=== PATIENT | female | born 1950 | race Caucasian/White ===

== ENCOUNTER 2021-06-28 12:36 | Outpatient (CLI) | payer OTHER | END 2021-06-28 12:37 | disposition home or self-care (01) | LOC: LABBT 12:36 | PROVIDERS: ATTEND Orthopaedic Surgery | DX: Z01.818 Encounter for other preprocedural examination (principal); M17.0 Bilateral primary osteoarthritis of knee | CPT/HCPCS: 71046; 80048; 81003; 85025; 85610; 86850; 86900; 86901; 87081; 93005; 93010; U0003; U0005 ==

== ENCOUNTER 2021-07-03 06:21 | Inpatient (IN) | payer MEDICARE, OTHER ==
[2021-06-28 13:46] LABS: #Basophils 0.1 10x3/uL (0.0-0.2); #Eosinphils 0.1 10x3/uL (0.0-0.5); #Monocytes 0.6 10x3/uL (0.0-1.1); %Basophils 0.8 % (0.0-2.0); %Eosinophils 1.2 % (0.0-6.0); %Lymphocytes 31.6 % (18.0-47.0); %Monocytes 7.4 % (0.0-10.0); %Neutrophils 58.5 % (40.0-75.0); Hemoglobin 13.8 g/dL (12.0-15.5); Mean Corpuscular HGB CONC 32.5 g/dL (32.0-36.0); Mean Corpuscular Hemoglobin 30.2 pg (27.0-33.0); Mean Platelet Volume 9.2 fl (7.4-10.4); Platelet Count 378 10x3/uL (150-450); RBC Distribution Width 12.7 % (11.5-14.5); Red Blood Cell (RBC) Count 4.57 10x6/uL (3.90-5.03); White Blood Cell (WBC) Count 8.5 10x3/uL (3.5-10.5)
[2021-06-28 13:46] LABS: Bilirubin Neg (Negative); Blood, Urine 25 (Negative); Clarity Cloudy (Clear); Glucose, Urine (Dipstick) Normal (Negative); Ketone, Urine Negative (Negative); Leukocyte 500 (Negative); Nitrite Negative (Negative); Protein, Urine (Dipstick) 30 mg/dl (Neg-Trace); Specific Gravity, Urine 1.025 (1.002-1.036); Urobilinogen Normal mg/dL (Less than 2)
[2021-06-28 14:06] LABS: Anion Gap 11 mmol/L (10-20); BUN (Urea Nitrogen) 14 mg/dL (9.8-20.1); Calc. Creatinine Clearance 0 mL/min (70-130); Carbon Dioxide 26 mmol/L (23-31); Chloride 109 mmol/L (98-107); Glucose 99 mg/dL (80-115); Potassium 3.9 mmol/L (3.5-5.1); Sodium 142 mmol/L (136-145)
[2021-06-28 14:13] LABS: INR-International Normal Ratio 0.9; Prothrombin Time 10.3 sec (9.5-12.1)
[2021-06-29 00:39] LABS: SARS-CoV-2 PCR by NAA Not Detected (NotDetected)
[2021-06-29 11:42] VITALS: BMI 26.4
[2021-07-03] MEDS ORDERED: Sodium Chloride 0.9% 100 ML ONE (06:52)
[2021-07-03] MEDS ORDERED: Tranexamic Acid 1,000 MG/10 ML VIAL ONE ×2 (06:52→11:43)
[2021-07-03] MEDS ORDERED: Vancomycin 1 GM/200 ML BAG ONE (06:52)
[2021-07-03] MEDS ORDERED: ceFAZolin 2 GM/DEX 5% 100 ML BAG ONE (06:52)
[2021-07-03] MEDS ORDERED: Midazolam HCl 2 mg/2 ml Vial ONE (08:16)
[2021-07-03] MEDS ORDERED: Fentanyl 100 MCG/2 ML VIAL ONE ×2 (08:16→12:58)
[2021-07-03] MEDS ORDERED: Bupivacaine PF 0.5% 30 ML VIAL ONE (09:08)
[2021-07-03] MEDS ORDERED: methylPREDNISolone Acetate 40 mg/ml Vial ONE (09:08)
[2021-07-03] MEDS ORDERED: Lidocaine 1% (PF) 30 ML VIAL ONE (09:08)
[2021-07-03] MEDS ORDERED: HYDROmorphone 0.5 MG/0.5 ML SYRINGE ONE (09:19)
[2021-07-03] MEDS ORDERED: Dexamethasone 20 MG/5 ML VIAL ONE (09:40)
[2021-07-03] MEDS ORDERED: PROPOFOL 200 MG/20 ML VIAL ONE (09:40)
[2021-07-03] MEDS ORDERED: Ketorolac Tromethamine 30 MG/ML VIAL ONE (09:40)
[2021-07-03] MEDS ORDERED: Lidocaine 1% PF 5 ML VIAL ONE (09:40)
[2021-07-03] MEDS ORDERED: Bupivacaine HCl 0.5%/Epinephrine 1:200,000/PF 30 ml Vial ONE (09:40)
[2021-07-03] MEDS ORDERED: Ondansetron PF 4 MG/2 ML Vial ONE (09:40)
[2021-07-03] MEDS ORDERED: ePHEDrine 50 MG/ML VIAL ONE (09:40)
[2021-07-03] MEDS ORDERED: hydrOXYzine 25 MG TAB PO PRN (09:47)
[2021-07-03] MEDS ORDERED: Fentanyl 100 MCG/2 ML VIAL IV PRN (09:48)
[2021-07-03] MEDS ORDERED: Zolpidem Tartrate 5 MG TAB PO PRN ×2 (09:53→10:00)
[2021-07-03] MEDS ORDERED: Acetaminophen 325 MG TAB PO PRN (09:53)
[2021-07-03] MEDS ORDERED: Ondansetron PF 4 MG/2 ML Vial IVP PRN ×2 (09:53→10:00)
[2021-07-03] MEDS ORDERED: Promethazine HCl 25 MG/ML VIAL IM PRN ×3 (09:53→11:08)
[2021-07-03] MEDS ORDERED: Diphenoxylate HCl/Atropine Tablet PO PRN (09:55)
[2021-07-03] MEDS ORDERED: Cyanocobalamin 1000 MCG/ML VIAL IM PRN (09:55)
[2021-07-03] MEDS ORDERED: traMADol HCl 50 MG TAB PO PRN ×2 (10:00)
[2021-07-03] MEDS ORDERED: HYDROcodone/Acetaminophen 10/325 mg Tablet PO PRN (10:00)
[2021-07-03] MEDS ORDERED: Sodium Chloride 0.9% 1,000 ML IV SCH (10:00)
[2021-07-03] MEDS ORDERED: Tranexamic Acid 1,000 MG in Sodium Chloride 0.9% 100 ML IVPB SCH (10:00)
[2021-07-03] MEDS ORDERED: Ropivacaine 0.2% 550 ML 550 ML NERVE BLCK SCH (10:00)
[2021-07-03] MEDS ORDERED: HYDROmorphone 2 MG/ML VIAL SLOW IVP PRN (11:08)
[2021-07-03] MEDS ORDERED: Promethazine HCl 25 MG/ML VIAL IVPB PRN (11:08)
[2021-07-03] MEDS ORDERED: Ondansetron HCl/PF 4 MG/2 ML Vial IVP PRN (11:08)
[2021-07-03] MEDS ORDERED: Sodium Chloride 0.9% 10 ML ONE (11:43)
[2021-07-03] MEDS ORDERED: Promethazine HCl 25 MG/ML VIAL ONE (12:03)
[2021-07-03] MEDS: Aspirin 81 mg Enteric Coated Tablet PO SCH ×2 (17:47→19:59)
[2021-07-03] MEDS: Ketorolac Tromethamine 30 MG/ML VIAL IVP SCH ×3 (17:49→23:35)
[2021-07-03] MEDS: ceFAZolin Sodium/D5W 2 GM in Premix Bag 1 BAG IVPB SCH ×2 (17:49→23:34)
[2021-07-03] MEDS ORDERED: Vancomycin 1 GM in Premix Bag 1 BAG IVPB SCH (19:00)
[2021-07-04 05:09] LABS: Hemoglobin 11.3 g/dL (12.0-16.0); Mean Corpuscular HGB CONC 32.5 g/dL (32.0-36.0); Mean Corpuscular Hemoglobin 31.3 pg (27.0-31.0); Mean Corpuscular Volume 96.4 fL (78.0-98.0); Mean Platelet Volume 6.5 fL (7.4-10.4); Platelet Count 292 thou/uL (130-400); RBC Distribution Width 11.9 % (11.5-14.5); Red Blood Cell (RBC) Count 3.62 mill/uL (4.20-5.40); White Blood Cell (WBC) Count 12.8 thou/uL (4.8-10.8)
[2021-07-04] MEDS: Ketorolac Tromethamine 30 MG/ML VIAL IVP SCH ×5 (06:10→23:28)
[2021-07-04] MEDS: Levothyroxine Sodium 112 MCG TAB PO SCH (06:16)
[2021-07-04] MEDS: HYDROcodone/Acetaminophen 10/325 mg Tablet PO PRN ×4 (06:29→23:51)
[2021-07-04] MEDS: diphenhydrAMINE 25 MG CAP PO PRN ×2 (06:29→20:01)
[2021-07-04] MEDS: Aspirin 81 mg Enteric Coated Tablet PO SCH (09:30)
[2021-07-04] MEDS: Fish Oil 1,000 MG CAP PO SCH (09:31)
[2021-07-04] MEDS: Cholecalciferol 1,000 UNITS (25 MCG) TAB PO SCH (09:31)
[2021-07-04] MEDS: Multivitamin W/ Minerals 1 TAB PO SCH (09:31)
[2021-07-04] MEDS: Senokot S 8.6-50 MG TAB PO SCH ×3 (09:31→19:58)
[2021-07-04] MEDS: Ferrous Gluconate 324 MG TAB PO SCH ×2 (09:32→19:58)
[2021-07-04] MEDS: Lisinopril 20 MG TAB PO SCH (09:32)
[2021-07-04] MEDS: Atorvastatin Calcium 10 MG TAB PO SCH (09:32)
[2021-07-04] MEDS: Amlodipine 10 MG TAB PO SCH (09:33)
[2021-07-04] MEDS ORDERED: Polyethylene Glycol 3350 17 GM Packet PO PRN (12:16)
[2021-07-05 04:43] LABS: Hemoglobin 10.7 g/dL (12.0-16.0); Mean Corpuscular HGB CONC 32.4 g/dL (32.0-36.0); Mean Corpuscular Hemoglobin 31.2 pg (27.0-31.0); Mean Corpuscular Volume 96.1 fL (78.0-98.0); Mean Platelet Volume 6.7 fL (7.4-10.4); Platelet Count 274 thou/uL (130-400); RBC Distribution Width 11.9 % (11.5-14.5); Red Blood Cell (RBC) Count 3.42 mill/uL (4.20-5.40); White Blood Cell (WBC) Count 13.3 thou/uL (4.8-10.8)
[2021-07-05] MEDS: HYDROcodone/Acetaminophen 10/325 mg Tablet PO PRN ×2 (06:23→13:39)
[2021-07-05] MEDS: Levothyroxine Sodium 112 MCG TAB PO SCH (06:24)
[2021-07-05] MEDS: diphenhydrAMINE 25 MG CAP PO PRN (06:24)
[2021-07-05] MEDS: Ketorolac Tromethamine 30 MG/ML VIAL IVP SCH (06:25)
[2021-07-05] MEDS: Lisinopril 20 MG TAB PO SCH (08:38)
[2021-07-05] MEDS: Fish Oil 1,000 MG CAP PO SCH (08:38)
[2021-07-05] MEDS: Cholecalciferol 1,000 UNITS (25 MCG) TAB PO SCH (08:38)
[2021-07-05] MEDS: Multivitamin W/ Minerals 1 TAB PO SCH (08:38)
[2021-07-05] MEDS: Senokot S 8.6-50 MG TAB PO SCH (08:38)
[2021-07-05] MEDS: Aspirin 81 mg Enteric Coated Tablet PO SCH (08:38)
[2021-07-05] MEDS: Amlodipine 10 MG TAB PO SCH (08:38)
[2021-07-05] MEDS: Atorvastatin Calcium 10 MG TAB PO SCH (08:38)
[2021-07-05] MEDS: Ferrous Gluconate 324 MG TAB PO SCH (08:39)
[2021-07-05 15:15] VITALS: BP 158/70; TEMP 98.4
[2021-07-05] MEDS ORDERED: Citrucel 500 MG TAB PO SCH (21:00)
[2021-07-06] MEDS ORDERED: Amlodipine 5 MG TAB PO SCH (09:00)
== END 2021-07-05 17:40 | disposition home health service (06) | DRG 470 ==
LOC: SDC 06:21 → SJJU 09:53
PROVIDERS: ADMIT Orthopaedic Surgery; ATTEND Orthopaedic Surgery
PROC: 0SRC0J9 Replacement of Right Knee Joint with Synthetic Substitute, Cemented, Open Approach (ICD-10-PCS; principal; 2021-07-03)
PROC: 3E0U33Z Introduction of Anti-inflammatory into Joints, Percutaneous Approach (ICD-10-PCS; 2021-07-03)
DX: M17.0 Bilateral primary osteoarthritis of knee (principal); Z20.822 Contact with and (suspected) exposure to COVID-19; I25.10 Atherosclerotic heart disease of native coronary artery without angina pectoris; E66.9 Obesity, unspecified; K21.9 Gastro-esophageal reflux disease without esophagitis; N18.2 Chronic kidney disease, stage 2 (mild); I12.9 Hypertensive chronic kidney disease with stage 1 through stage 4 chronic kidney disease, or unspecified chronic kidney disease; E78.5 Hyperlipidemia, unspecified; E03.9 Hypothyroidism, unspecified; I25.2 Old myocardial infarction; Z88.6 Allergy status to analgesic agent; Z88.1 Allergy status to other antibiotic agents; Z88.5 Allergy status to narcotic agent; Z88.8 Allergy status to other drugs, medicaments and biological substances; Z91.09 Other allergy status, other than to drugs and biological substances; Z79.899 Other long term (current) drug therapy; Z79.82 Long term (current) use of aspirin; Z79.890 Hormone replacement therapy; Z68.26 Body mass index [BMI] 26.0-26.9, adult; Z82.49 Family history of ischemic heart disease and other diseases of the circulatory system; Z87.891 Personal history of nicotine dependence
CPT/HCPCS: 36415; 80048; 81003; 85025; 85027; 85610; 86850; 86900; 86901; 87081; 87086; A4306; C1713; C1776; J1100; J1170; J1885; J2001; J2250; J2405; J2550; J2704; J2795; J2920; J3010; J3370; J3490; S0020; U0003; U0005

== ENCOUNTER 2024-01-16 14:59 | Outpatient (CLI) | payer MEDICARE, OTHER ==
[2024-01-16 16:11] LABS: #Basophils 0.06 10x3/uL (0.0-0.2); #Eosinphils 0.15 10x3/uL (0.0-0.5); #Monocytes 0.53 10x3/uL (0.0-1.1); #Neutrophils 3.46 10x3/uL (1.5-8.4); %Basophils 0.8 % (0.0-2.0); %Eosinophils 2.1 % (0.0-6.0); %Lymphocytes 41.3 % (18.0-47.0); %Monocytes 7.4 % (0.0-10.0); %Neutrophils 48.1 % (40.0-75.0); Hematocrit 39.8 % (34.9-44.5); Hemoglobin 13.8 g/dL (12.0-15.5); Mean Corpuscular HGB CONC 34.7 g/dL (32.0-36.0); Mean Corpuscular Hemoglobin 31.7 pg (27.0-33.0); Mean Corpuscular Volume 91.3 fL (81.6-98.3); Mean Platelet Volume 8.9 fL (7.4-10.4); Platelet Count 334 10x3/uL (150-450); RBC Distribution Width 13.1 % (11.5-14.5); Red Blood Cell (RBC) Count 4.36 10x6/uL (3.90-5.03); White Blood Cell (WBC) Count 7.2 10x3/uL (3.5-10.5)
== END 2024-01-16 15:00 | disposition home or self-care (01) ==
LOC: LABBT 14:59
PROVIDERS: ATTEND Orthopaedic Surgery Hand Surgery
DX: Z01.818 Encounter for other preprocedural examination (principal); G56.03 Carpal tunnel syndrome, bilateral upper limbs
CPT/HCPCS: 85025; 93005; 93010

== ENCOUNTER 2024-01-21 06:30 | Day surgery (SDC) | payer MEDICARE, OTHER ==
[2024-01-16 15:57] VITALS: BMI 26.2
[2024-01-21] MEDS ORDERED: Bupivacaine PF 0.5% 30 ML VIAL ONE (06:40)
[2024-01-21] MEDS ORDERED: Bacitracin Zinc Ointment 30 gm TUBE ONE (06:40)
[2024-01-21] MEDS ORDERED: PROPOFOL 20 ML ONE (07:03)
[2024-01-21] MEDS ORDERED: fentaNYL PF 100 MCG/2 ML SYRINGE ONE (07:03)
[2024-01-21] MEDS ORDERED: Sodium Chloride 0.9% 100 ML ONE (07:31)
[2024-01-21] MEDS ORDERED: CEFAZOLIN 2 GM VIAL ONE (07:31)
[2024-01-21] MEDS ORDERED: ePHEDrine Sulfate 50 MG/10 ML VIAL ONE (07:33)
[2024-01-21] MEDS ORDERED: Glycopyrrolate 0.2 MG/ML 5 ML SYRINGE ONE ×2 (07:33→10:20)
[2024-01-21] MEDS ORDERED: Dexamethasone 4 mg/ml Vial ONE (07:42)
[2024-01-21] MEDS ORDERED: Ondansetron PF 4 MG/2 ML Vial ONE ×2 (07:42→10:18)
[2024-01-21] MEDS ORDERED: PHENYLEPHRINE-NS 100 MCG/ML 10 ML SYRINGE ONE ×2 (07:52→10:20)
== END 2024-01-21 13:50 | disposition home or self-care (01) ==
LOC: SDC 06:30
PROVIDERS: ATTEND Orthopaedic Surgery Hand Surgery
PROC: 01N50ZZ Release Median Nerve, Open Approach (ICD-10-PCS; principal; 2024-01-21)
DX: G56.01 Carpal tunnel syndrome, right upper limb (principal); G56.02 Carpal tunnel syndrome, left upper limb; I11.9 Hypertensive heart disease without heart failure; M72.0 Palmar fascial fibromatosis [Dupuytren]; M48.02 Spinal stenosis, cervical region; M65.332 Trigger finger, left middle finger; M65.341 Trigger finger, right ring finger; G58.7 Mononeuritis multiplex; Z79.82 Long term (current) use of aspirin; Z79.899 Other long term (current) drug therapy; Z98.890 Other specified postprocedural states; Z91.048 Other nonmedicinal substance allergy status; Z88.0 Allergy status to penicillin; Z88.6 Allergy status to analgesic agent; Z88.5 Allergy status to narcotic agent
CPT/HCPCS: 64721; J0665; J1100; J2405; J2704; J3490; A6223